=== PATIENT | female | born 1980 | race Caucasian/White ===

== ENCOUNTER 2018-06-06 13:02 | Outpatient (CLI) | payer BC ==
--- NOTE | 2018-06-06 15:38 | ULT ---
LEFT BREAST ULTRASOUND: Date: 06/06/18 COMPARISON: 06/06/18. HISTORY: 38-year-old female with palpable left breast mass at the 3 o'clock position of the left breast. TECHNIQUE: Multiplanar Deal scale and color Doppler images were obtained in a targeted ultrasound of the left br east. FINDINGS: At the area of palpable abnormality, in the 3 o'clock position, approximately 3.0 cm from the nipple, there is a well circumscribed cyst. There is a small amount of debris within this cyst. There is inc reased through-transmission without shadowing. No suspicious solid mass or shadowing is seen. IMPRESSION: BIRADS 2: Benign Finding(s) Annual screening mammography is recommended. POS: [facility]
== END 2018-06-06 13:03 | disposition home or self-care (01) ==
LOC: BICMAMMO 13:02
DX: R92.8 Other abnormal and inconclusive findings on diagnostic imaging of breast (principal); R92.0 Mammographic microcalcification found on diagnostic imaging of breast; N63.20 Unspecified lump in the left breast, unspecified quadrant; Z80.3 Family history of malignant neoplasm of breast
CPT/HCPCS: 77066; G0279